=== PATIENT | female | born 1980 | race Caucasian/White ===

== ENCOUNTER 2020-12-28 19:28 | Inpatient (IN) ==
[2020-12-28] MEDS ORDERED: Metoclopramide 10 MG/2 ML VIAL IVP PRN (19:29)
[2020-12-28] MEDS ORDERED: Naloxone 0.4 MG/ML INJ IVP PRN (19:29)
[2020-12-28] MEDS ORDERED: Lidocaine 1% 20 ML MDV INFILT PRN (19:29)
[2020-12-28] MEDS ORDERED: *HR* Nalbuphine 10 MG/ML AMPUL IV PRN (19:29)
[2020-12-28] MEDS ORDERED: Famotidine 20 MG/2 ML VIAL IVP PRN (19:29)
[2020-12-28] MEDS ORDERED: Ondansetron 4 MG/2 ML VIAL IVP PRN (19:29)
[2020-12-28] MEDS ORDERED: Ringers Solution, Lactated 1,000 ML IVC SCH (19:30)
[2020-12-28] MEDS ORDERED: Oxytocin 20 units/ LR 1000 mL 20 UNIT/1,000 ML BAG IVC ONE (19:42)
[2020-12-28 19:58] LABS: Basophils % 0.2 %; Eosinophils % 0.2 %; Hematocrit 39.7 % (35.3-44.9); Hemoglobin 12.9 g/dL (11.5-15.4); Immature Granulocytes % 1.1 % (0-4); Lymphocytes # 2.4 K/mcL (0.6-4.6); Lymphocytes % 14.5 %; Mean Corpuscular HGB Conc 32.5 g/dL (31.6-35.5); Mean Corpuscular Hemoglobin 29.7 pg (28.0-33.3); Mean Corpuscular Volume 91.3 fL (83.0-100.0); Monocytes # 1.1 K/mcL (0.0-1.3); Monocytes % 6.8 %; Neutrophils # 12.8 K/mcL (1.6-8.9); Platelet Count 195 K/mcL (140-400); Red Blood Count 4.35 M/mcL (3.82-4.97); Red Cell Distribution Width 13.7 % (11.5-14.5); Segmented Neutrophils % 77.2 %; White Blood Count 16.6 K/mcL (4.3-11.1)
[2020-12-28] MEDS ORDERED: Measles/Mumps/Rubella Vacc 0.5 ML VIAL SQ PRN (21:57)
[2020-12-28] MEDS ORDERED: Acetaminophen 325 MG TABLET PO PRN (21:57)
[2020-12-28] MEDS ORDERED: Ibuprofen 600 MG TABLET PO PRN (21:57)
[2020-12-28] MEDS ORDERED: Oxytocin 20 units/ LR 1000 mL 20 UNIT/1,000 ML BAG IVC SCH (21:57)
[2020-12-28] MEDS ORDERED: Lanolin 7 G OINT...G. TP PRN (21:57)
[2020-12-28] MEDS ORDERED: Benzocaine/Menthol 56 GM AEROSOL SPRAY TP PRN (21:57)
[2020-12-28] MEDS ORDERED: Rho Immune Globulin 1,500 UNIT SYRINGE IM PRN (21:57)
[2020-12-29 00:54] VITALS: BP 117/77
[2020-12-29] MEDS ORDERED: Prenatal Vit/FA 1 EACH TABLET PO SCH (09:00)
== END 2020-12-29 03:00 | disposition home or self-care (01) | DRG 807 ==
LOC: 1NENULAB 19:28
PROVIDERS: ADMIT Student in an Organized Health Care Education/Training Program; ATTEND Student in an Organized Health Care Education/Training Program